=== PATIENT | female | born 1955 | race Caucasian/White ===

== ENCOUNTER → 2016-11-28 | Outpatient (CLI) | payer OTHER ==
[~2016-11-28] MED LIST: ALEVE OTC PRN; DISCONTINUED MED; OMEPRAZOLE20 M2 PO; SAVELLA25 MG PO
--- NOTE | ~2016-11-28 | MY29 ---
[facility] A Service of [facility] & [facility] RADIOLOGY TEXT RESULTS PATIENT: KAM CUEVAS LOCATION: [facility] : 55 UNIT #: [id number] AGE: [address]: Mariaa Cat MD SEX: F ORDER DR: [id number] [facility]. [place], [place] [address] [id number] O MR#: [id number] Acc #: [id number] NAME: KAM CUEVAS : 1955 SEX: F STUDY DATE/TIME: 11/28/2016 10:47 UNIT: [facility] ROOM: STUDY DESCRIPTION: MY LIOR SCREENING W/ CAD BILAT Attending Physician: Mariaa Cat M.D. Referring Physician: Mariaa Cat M.D. Ordering Physician: Mariaa Cat M.D. Primary Care Physician: Mariaa Cat M.D. MEDICAL IMAGING REPORT This report is preliminary unless electronic signature is present EXAM Bilateral digital screening mammogram with CAD COMPARISON 03/29/2013m 12/18/2012, 08/20/2007, 11/22/2000 INDICATIONS Breast cancer screening. 61-year-old asymptomatic female. No personal or family history of breast cancer. FINDINGS There is scattered fibroglandular densities. There are no suspicious findings in the left breast. At the junction of the anterior middle thirds of the 06:30 right breast, there is developing mass measuring approximately 7 mm x 8 mm x 6 mm. In the middle third of the right breast there is developing focal asymmetry localizing approximately the 6-6:30 position. This measures 3.9 cm x 3.5 cm x 2.8 cm. IMPRESSION 1. No mammographic evidence of malignancy in the left breast. 2. Right breast mass and separate but immediately adjacent right breast focal asymmetry, developing on mammography. Further evaluation with spot compression CC and spot compression MLO views is recommended, likely followed by right breast ultrasound. Patient's over the age of 40 are entered into a reminder system with target due date for the next mammogram. A result letter will be sent to the patient. BIRADS: 0 Needs additional imaging evaluate and/or prior mammograms for comparison. [facility] A Service of [facility] & [facility] RADIOLOGY TEXT RESULTS PATIENT: KAM CUEVAS LOCATION: [facility] : 55 UNIT #: [id number] AGE: [address]: Mariaa Cat MD SEX: F ORDER DR: Dictated by... Khai Lassiter M.D. THIS IS AN ELECTRONICALLY VERIFIED REPORT Khai Lassiter M.D. at 12/06/2016 2:51 AM BLM/sidra TD: 11/28/2016 21:17 JOB #: [id number] MEDICAL IMAGING REPORT Page 1 of 1 COPY
== END | disposition home or self-care (01) ==
LOC: CWCC 09:47
DX: Z12.31 Encounter for screening mammogram for malignant neoplasm of breast (principal); N63 Unspecified lump in breast; N64.89 Other specified disorders of breast
CPT/HCPCS: G0202

== ENCOUNTER → 2016-12-12 | Outpatient (CLI) | payer OTHER ==
--- NOTE | ~2016-12-12 | US24 ---
[facility] A Service of [facility] & [facility] RADIOLOGY TEXT RESULTS PATIENT: KAM CUEVAS LOCATION: [facility] : 55 UNIT #: [id number] AGE: [address]: Mariaa Cat MD SEX: F ORDER DR: [id number] [address] [address] [id number] O MR#: [id number] Acc #: [id number] NAME: KAM CUEVAS. : 1955 SEX: F STUDY DATE/TIME: 12/12/2016 14:48 UNIT: [facility] ROOM: STUDY DESCRIPTION: US Breast Unilateral Attending Physician: Mariaa Cat M.D. Ordering Physician: Mariaa Cat M.D. Primary Care Physician: Mariaa Cat M.D. MEDICAL IMAGING REPORT This report is preliminary unless electronic signature is present EXAM Targeted ultrasound of the right breast 12/12/2016 Please see the report from the diagnostic mammogram same date for this dictation. BIRADS: 3 - Probably benign findings. Short term followup requested. Dictated by... Jean-Claude Pak M.D. THIS IS AN ELECTRONICALLY VERIFIED REPORT Jean-Claude Pak M.D. at 12/13/2016 2:31 PM Kain TD: 12/13/2016 10:15 JOB #: [id number] MEDICAL IMAGING REPORT Page 1 of 1 COPY
--- NOTE | ~2016-12-12 | MY25 ---
[facility] A Service of [facility] & [facility] RADIOLOGY TEXT RESULTS PATIENT: KAM CUEVAS LOCATION: [facility] : 55 UNIT #: [id number] AGE: [address]: Mariaa Cat MD SEX: F ORDER DR: [id number] [facility] [address] [facility]. [place], [place] [address] [id number] O MR#: [id number] Acc #: [id number] NAME: KAM CUEVAS. : 1955 SEX: F STUDY DATE/TIME: 12/12/2016 14:18 UNIT: [facility] ROOM: STUDY DESCRIPTION: [facility] W/ CAD UNI RT Attending Physician: Mariaa Cat M.D. Ordering Physician: Mariaa Cat M.D. Primary Care Physician: Mariaa Cat M.D. MEDICAL IMAGING REPORT This report is preliminary unless electronic signature is present EXAM Additional views of the right breast mammographically and targeted ultrasound 12/12/2016 INDICATION 61-year-old female recalled for a nodular asymmetry in the right breast and generalized asymmetric densities in the right breast in the 6-7 o'clock position. The patient denies any palpable abnormality or interval change. TECHNIQUE Compression CC, compression MLO and true lateral views were obtained mammographically and reviewed with an FDA-approved CAD device. Targeted ultrasound of the right breast was also performed. COMPARISON Mammogram 11/28/2016, 03/29/2013, 12/18/2012, 08/20/2007. FINDINGS MAMMOGRAPHIC: The 8 mm nodular density in the lower outer right breast persists. A smaller nodular density more posteriorly measures about 8-9 mm and also persists. There is a third area of nodularity in the same region that is less conspicuous but does not resolve on spot compression or true lateral views. Ultrasound was thereafter performed for further assessment. ULTRASOUND: RIGHT BREAST: The patient was initially scanned independently by the technologist and then rescanned in my presence. Imaging of the 5 o'clock through 8 o'clock positions right breast was performed. In the 7 o'clock position 3 cm from the nipple, there is a benign appearing cyst measuring 8 x 6 mm. This appears to correspond to the 8 mm nodule in the same clock position more anteriorly in the right breast. Also at 7 o'clock more STS. [facility] A Service of [facility] & [facility] RADIOLOGY TEXT RESULTS PATIENT: KAM CUEVAS LOCATION: [facility] : 55 UNIT #: [id number] AGE: [address]: Mariaa Cta MD SEX: F ORDER DR: posteriorly about 9 cm from the nipple, there is a probably benign complicated cyst measuring up to about 8 x 5 mm corresponding to the second more posterior nodule mammographically. There is a scant amount of debris within this probably benign cyst under ultrasound evaluation during real-time visualization. It warrants a followup ultrasound in 6 months for reassessment of stability although it is probably benign. There is a third area of nodularity on the patient's mammogram that does not have an ultrasound correlate. There is some dense breast tissue in the same region as the nodularity on the patient's mammogram but a third distinct nodule was not identified with ultrasound. Given that there is no ultrasound correlate for the subtle nodularity mammographically, this also warrants a followup mammogram in 6 months to document stability. Findings and recommendations were discussed with the patient here in the department. She has voiced understanding and agreement. She was informed that if findings became more suspicious on 6-month followup then biopsy would be indicated at that point for further assessment. She has voiced understanding and agreement. IMPRESSION 1. There is a benign cyst in the 7 o'clock position right breast measuring 8 mm. Imaging findings between mammography and ultrasound are concordant. 2. Probably benign cyst measuring 9 mm in the 7 o'clock position right breast. This warrants a followup ultrasound in 6 months for reassessment of probable stability. 3. There is parenchymal nodularity mammographically in the same clock position of the right breast without ultrasound correlate. This warrants a followup mammogram in 6 months to document expected stability. 4. If findings become more suspicious on followup imaging then biopsy would be recommended at that point. See discussion above. Patients over the age of 40 are entered into a reminder system with target due date for the next mammogram. A result letter will also be sent to the patient. BIRADS: 3 Probably benign finding; short interval followup suggested Dictated by... Jean-Claude Pak M.D. THIS IS AN ELECTRONICALLY VERIFIED REPORT Jean-Claude Pak M.D. at 12/13/2016 2:31 PM PILY/paulina TD: 12/13/2016 09:54 [facility]. [facility] A Service of [facility] RADIOLOGY TEXT RESULTS PATIENT: KAM CUEVAS LOCATION: [facility] #: [id number] : 55 UNIT #: [id number] AGE: [address]: Mariaa Cat MD SEX: F ORDER DR: ABDON #: [id number] MEDICAL IMAGING REPORT Page 1 of 1 COPY
== END | disposition home or self-care (01) ==
LOC: CMAM 14:05
DX: R92.8 Other abnormal and inconclusive findings on diagnostic imaging of breast (principal); N60.01 Solitary cyst of right breast
CPT/HCPCS: 76641; G0206